=== PATIENT | male | born 1990 | race Caucasian/White ===

== ENCOUNTER 2017-01-07 10:17 | Emergency (ER) | payer OTHER ==
[~2017-01-07] VITALS: Ht 185.4 cm; Wt 135.2 kg
[2017-01-07] MEDS ORDERED: ONDA4TAB6 PO (11:29)
[2017-01-07] MEDS ORDERED: ONDANSETRON 4 MG ORAL DISINTEGRATING TAB (S0181) PO ONE (11:30)
[2017-01-07 11:33] VITALS: BP 127/75
== END 2017-01-07 11:35 | disposition home or self-care (01) ==
LOC: M ED 10:17
DX: R11.2 Nausea with vomiting, unspecified (principal); Z72.0 Tobacco use

== ENCOUNTER → 2021-06-22 | Outpatient (CLI) | payer OTHER ==
[~2021-06-22] MED LIST: ONDA4TAB6 PO
[2021-06-22 10:46] LABS: PLATELET COUNT, AUTOMATED 229 10^3/uL (150-450)
[2021-06-22 10:56] LABS: INR 0.83; PROTHROMBIN TIME 11.8 SECONDS (12.7-14.5)
[2021-06-22 10:57] LABS: PARTIAL THROMBOPLASTIN TIME 38.6 SECONDS (25.9-37.0)
== END ==
LOC: M LAB 09:48
PROVIDERS: ATTEND Physician Assistant
DX: M51.36 Other intervertebral disc degeneration, lumbar region (principal)